=== PATIENT | male | born 1975 ===

== ENCOUNTER 2019-07-30 13:03 | Emergency (ER) | payer BC, SELFPAY ==
--- NOTE | ~2019-07-30 | XR_ITS ---
XR knee LT 3V DATE: 07/30/2019 14:04 INDICATION: Left knee pop. Pain and swelling. TECHNIQUE: 3 views including crosstable lateral COMPARISON: None FINDINGS: There is a large suprapatellar knee joint effusion. No fracture or dislocation, periosteal reaction or bone destruction, radiopaque intra-articular loose body or chondrocalcinosis is evident. Joint spaces appear well preserved. IMPRESSION: Large knee joint effusion Reviewed, dictated and finalized at location A. IMPRESSION: Large knee joint effusion
[2019-07-30 13:12] VITALS: BP 158/96; PULSE 84; RESP 18; TEMP 36.2; O2SAT 100
[2019-07-30] MEDS: KETOROLAC (*BKC) 60 MG/2 ML VIAL 30 MG IM (14:37)
--- NOTE | 2019-07-30 14:53 | ED.LOWEXIN ---
HPI - Extremity Injury (Lower) General Chief Complaint: Extremity Injury, Lower <Jacky Hilario PA-C - Last Filed: 07/30/19 20:37> Stated Complaint: L knee pain <Jacky Hilario PA-C - Last Filed: 07/30/19 20:37> Time Seen by Provider: 07/30/19 13:15 <Jacky Hilario PA-C - Last Filed: 07/30/19 20:37> Source: patient <BRIGIDO Thacker Last Filed: 07/30/19 20:37> Mode of arrival: ambulatory <BRIGIDO Thacker Last Filed: 07/30/19 20:37> Limitations: no limitations <BRIGIDO Thacker Last Filed: 07/30/19 20:37> History of Present Illness HPI Narrative: Patient presents with chief complaint of swelling and pain to the left knee. Patient states that he was walking in a store when he felt a popping sensation after hyperflexing his left leg. Patient states after he noticed a lot of swelling and pressure. Patient states the pain worsens with weightbearing. Patient states he has been using a cane for ambulation. He states he is concerned as he does a lot of walking on his job. Patient states that he went to an urgent care and was told that his knee was dislocated but an x-ray was not taken. <Jacky Hilario PA-C - Last Filed: 07/30/19 20:37> Related Data Home Medications: Home Medications Medication Instructions Recorded Confirmed glimepiride 4 mg tablet 2 mg PO QAM tablet 07/31/19 metformin 1,000 mg tablet 1,000 mg PO BID 07/31/19 <BRIGIDO Thacker Last Filed: 07/30/19 20:37> Allergies/Adverse Reactions: Allergies Allergy/AdvReac Type Severity Reaction Status Date / Time No Known Allergies Allergy Verified 07/31/19 13:01 <BRIGIDO Thacker Last Filed: 07/30/19 20:37> Review of Systems Review of Systems: Narrative: CONSTITUTIONAL: Denies fever, chills, or sweats. EYES: Denies visual changes, redness, or discharge. ENT: Denies rhinorrhea, congestion, sore throat, or otalgia. CARDIOVASCULAR: Denies chest pain, palpitations, or edema. RESPIRATORY: Denies cough or dyspnea. GASTROINTESTINAL: Denies abdominal pain, nausea, vomiting, or diarrhea. GENITOURINARY: Denies dysuria or hematuria. SKIN: Denies rash or itching. MUSCULOSKELETAL: Reports left knee pain denies back pain or myalgia. NEUROLOGIC: Denies headache, numbness, dizziness, or weakness. PSYCHIATRIC: Denies anxiety or depression. <Jacky Hilario PA-C - Last Filed: 07/30/19 20:37> [facility] Social History Social History: Social History Smoking status: Never smoker Substance use: never Gender identity (if verbalized by the patient): Male <Jacky Hilario PA-C - Last Filed: 07/30/19 20:37> Exam Narrative: Exam Narrative: GENERAL: Well-appearing, well-nourished, and in no acute distress. HEAD: Normocephalic, atraumatic. EYES: PERRLA and EOMI. ENT: Nares clear, no rhinorrhea or epistaxis. Airway patent. No outward signs of trauma NECK: Range of motion intact CHEST: No tachypnea or audible wheezing. No respiratory distress. EXTREMITIES: Swelling and effusion noted to left knee. No erythema or excessive warmth suspicious for septic joint or cellulitis. Range of motion limited due to swelling. SKIN: Warm, dry, no rash. NEURO: No focal deficits. Alert and oriented x3. PSYCH: Normal mood and affect. <Jacky Hilario PA-C - Last Filed: 07/30/19 20:37> Course Vital Signs Vital signs: Vital Signs Temperature 97.1 F L 07/30/19 13:12 Pulse Rate 84 07/30/19 13:12 Respiratory Rate 18 07/30/19 13:12 Blood Pressure 158/96 H 07/30/19 13:12 Pulse Oximetry 100 07/30/19 13:12 Temperature 97.1 F L 07/30/19 13:12 Pulse Rate 84 07/30/19 13:12 Respiratory Rate 18 07/30/19 13:12 Blood Pressure 158/96 H 07/30/19 13:12 Pulse Oximetry 100 07/30/19 13:12 <Jacky Hilario PA-C - Last Filed: 07/30/19 20:37> Vital Signs Temperature 97.1 F L 07/30/19 13:12 Pulse Rate 84 07/30/19
== END 2019-07-30 15:35 | disposition home or self-care (01) ==
LOC: ANHED 15:49
PROVIDERS: Emergency Provider General Practice
DX: M25.462 Effusion, left knee (principal)
CPT/HCPCS: 73562; 96372; 99283; J1885

== ENCOUNTER → 2019-08-05 09:55 | Outpatient (CLI) | payer BC, SELFPAY ==
--- NOTE | ~2019-08-05 | MR_ITS ---
EXAMINATION: MR knee LT wo con DATE: 08/05/2019 11:08 INDICATION: Left knee pain, swelling and joint effusion post arthrocentesis one week prior TECHNIQUE: Magnetic resonance imaging (MRI) of the left knee was performed without intravenous contra st. Sequences included coronal PD-weighted FSE, coronal PD-weighted FS FSE, sagittal T2-weighted FSE , sagittal PD-weighted FS FSE and axial PD weighted fat saturated FSE. COMPARISON: None. FINDINGS: Medial compartment: Medial meniscus is normal. Articular cartilage is normal. Lateral compartment: Lateral meniscus is normal. Deep chondral fissuring at the posterior half of the lateral tibial plate au with prominent subarticular cyst underlying the posterior rim. Cartilage along the weightbearing l ateral femoral condyle is normal. Patellofemoral compartment: Deep chondral fissuring at the inferior aspect of the apical ridge and inferomedial aspect of the lat eral patellar facet, the latter with negligible underlying subarticular edema. Partial-thickness cart ilage loss with smooth chondral surface and without degenerative subchondral changes along the caudal aspect of the trochlear groove and lateral trochlea. Ligaments and tendons: Anterior and posterior cruciate ligaments are normal. The medial collateral ligament and fibular andressa ateral ligament complex are normal. The extensor mechanism is normal. The visualized medial and later al hamstring tendons as well as the iliotibial band are normal. Fluid: Moderate to large left knee joint effusion with mild synovitis at the suprapatellar pouch. 1.7 x 1.6 x 1.5 cm complex fluid collection, likely a ganglion cyst with multiple thin internal septations at t he superomedial aspect of Hoffa's fat pad along the inferomedial margin of the patella. No loose oste ochondral bodies identified. Osseous/other: Aside from the previous noted mild degenerative subarticular changes there is normal marrow signal th roughout. No fracture or pathologic marrow replacing process. Small bone island at the posterior late ral femoral condyle. IMPRESSION: 1. 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 2. Moderate to large left knee joint effusion along with a likely ganglion cyst at Hoffa's fat pad al luis the inferomedial margin of the patella. Reviewed, dictated and finalized at location A. IMPRESSION: 1. Mild osteoarthritis with small regions of moderate to high-grade chondromala soni at the lateral and patellofemoral compartments. 2. Moderate to large left knee joint effusion along with a likely ganglion cyst at Hoffa's fat pad along the inferomedial margin of the patella.
== END ==
PROVIDERS: Visit Provider Orthopaedic Surgery
DX: M17.12 Unilateral primary osteoarthritis, left knee (principal); M25.462 Effusion, left knee
CPT/HCPCS: 73721

== ENCOUNTER → 2021-12-29 06:54 | Outpatient (CLI) | payer BC, SELFPAY ==
--- NOTE | ~2021-12-29 | MR_ITS ---
EXAMINATION: MR knee LT wo con DATE: 12/29/2021 07:24 INDICATION: Left knee pain TECHNIQUE: Magnetic resonance imaging (MRI) of the left knee was performed without intravenous contra st. Sequences included coronal PD-weighted FSE, coronal PD-weighted FS FSE, sagittal T2-weighted FSE , sagittal PD-weighted FS FSE and axial PD weighted fat saturated FSE. COMPARISON: 08/05/2019 FINDINGS: Medial compartment: Medial meniscus is normal. Articular cartilage is normal. Lateral compartment: Lateral meniscus is normal. Small region of partial-thickness chondral fissuring without degenerative subchondral changes at the posterior aspect of the lateral tibial plateau. Of the normal fatty marro w has filled in the previously seen subarticular cystic change along the posterior rim of the lateral tibial plateau. Cartilage along the weightbearing lateral femoral condyle is normal. Patellofemoral compartment: No significant change in deep chondral fissuring at the inferior aspect of the patellar apical ridge and inferomedial aspect of the lateral patellar facet with minimal underlying edema-like signal bryant e. Also unchanged is mild partial-thickness cartilage loss with smooth chondral surface and without d egenerative subchondral changes at the inferior aspect of the trochlear groove and lateral trochlea. Ligaments and tendons: Anterior and posterior cruciate ligaments are normal. The medial collateral ligament and fibular andressa ateral ligament complex are normal. The extensor mechanism is normal. The visualized medial and later al hamstring tendons as well as the iliotibial band are normal. Fluid: Small left knee joint effusion at the suprapatellar pouch. No loose osteochondral bodies identified. There is a 1.8 x 1.3 x 1.6 cm T2 hyperintense lesion within Hoffa's fat pad which appears to arise fr om small vessels but without evident flow voids suggesting either varicosities or less likely a low f low vascular malformation. There is prominent increased fluid signal at the lateral side of the deep suprapatellar fat pad along the anterolateral margin of the lateral femoral condyle which could be du e to either contusion in the setting of trauma or fat pad impingement syndrome. Osseous/other: Bone alignment is normal. No fracture or pathologic marrow replacing process. IMPRESSION: 1. Mild lateral and patellofemoral osteoarthritis with small region of moderate grade chondral malaci a the posterior lateral tibial plateau and moderate to high-grade chondromalacia at the inferior aspe ct of the apical ridge and adjacent lateral patellar facet. 2. Small left knee joint effusion. 3. Prominent increased fluid signal in the deep suprapatellar fat pad which could be related to eithe r contusion in the setting of prior trauma or fat pad impingement syndrome. 4. No significant change in a 1.8 x 1.3 x 1.6 cm T2 hyperintense lesion in Hoffa's fat pad which appe ars contiguous with small vessels but without internal flow void suggesting either a venous varix or low flow vascular malformation. Differential would include a ganglion cyst. Reviewed, dictated and finalized at location A. IMPRESSION: 1. Mild lateral and patellofemoral osteoarthritis with small region of moderate grade chondral malacia the posterior lateral tibial plateau and moderate to hi gh-grade chondromalacia at the inferior aspect of the apical ridge and adjacent lateral patellar facet. 2. Small left knee joint effusion. 3. Prominent increased fluid signal in the deep suprapatellar fat pad which cou ld be related to either contusion in the setting of prior trauma or fat pad imp ingement syndrome. 4. No significant change in a 1.8 x 1.3 x 1.6 cm T2 hyperintense lesion in Myra a's fat pad which appears barbie
== END ==
PROVIDERS: PCP Family Medicine Sports Medicine; Visit Provider Nurse Practitioner Family
DX: M17.12 Unilateral primary osteoarthritis, left knee (principal); M25.462 Effusion, left knee
CPT/HCPCS: 73721

== ENCOUNTER 2022-01-05 14:58 | Outpatient (NON) | payer BC, SELFPAY ==
[2022-01-05 18:48] LABS: Appearance Synovial Fluid Hazy (Clear); Color Synovial Fluid Red (Colorless); Nucleated Cell Synovial Fluid 1451 /uL (0-200); Source Synovial Fluid Synovial fluid
[2022-01-05 18:49] LABS: Lymphocytes Synovial Fluid 64 %; Macrophages Synovial Fluid 4 %; Monocytes Synovial Fluid 24 %; Neutrophils Synovial Fluid 8 % (0-25)
[2022-01-05 18:53] LABS: Crystals Synovial Fluid None Seen (None Seen)
[2022-01-08 20:08] LABS: Glucose Synovial Fluid 418 mg/dL
[2022-01-12 08:04] LABS: Total Protein Synovial Fluid 3.2
== END 2022-01-05 14:59 | disposition home or self-care (01) ==
PROVIDERS: PCP Family Medicine Sports Medicine; Visit Provider Orthopaedic Surgery
DX: M25.462 Effusion, left knee (principal)
CPT/HCPCS: 36415; 82945; 84157; 87205; 89051; 89060